=== PATIENT | female | born 1940 | race Caucasian/White ===

== ENCOUNTER 2020-09-20 17:12 | Inpatient (IN) ==
[2020-09-20] MEDS ORDERED: Naloxone 0.4 MG/ML INJ IVP PRN (21:54)
[2020-09-20] MEDS ORDERED: Ondansetron 4 MG/2 ML VIAL IVP PRN (21:54)
[2020-09-20] MEDS ORDERED: 0.9 % Sodium Chloride 1,000 ML IVC SCH (22:00)
[2020-09-21 00:07] LABS: Bilirubin,Urine Negative (Negative); Blood,Urine Negative (Negative); Clarity,Urine Clear (Clear); Color,Urine Colorless (Yellow); Glucose,Urine (UA) Normal (Normal); Ketones,Urine Negative (Negative); Leukocyte Esterase,Urine Negative (Negative); Nitrite,Urine Negative (Negative); PH,Urine 6.5 pH Units (5.0-8.0); Protein,Urine Trace mg/dL (Neg-Trace); Specific Gravity,Urine 1.023 (1.010-1.025); Urobilinogen,Urine Normal (Normal)
[2020-09-21] MEDS ORDERED: MetroNIDAZOLE 500 MG/100 ML 500 MG/100 ML BAG IVPB SCH (02:00)
[2020-09-21] MEDS: Ipratropium/Albuterol Neb 3 ML IH SCH ×6 (04:21→23:02)
[2020-09-21] MEDS: Acetaminophen 325 MG TABLET PO PRN ×2 (04:33→22:49)
[2020-09-21] MEDS ORDERED: *HR* Labetalol 20 MG/4 ML SYRINGE IVP PRN (04:53)
[2020-09-21] MEDS: *HR* Heparin 5,000 UNIT/ML VIAL SQ SCH ×3 (05:42→22:49)
[2020-09-21] MEDS: MethylPREDNISolone 40 MG/ML VIAL IVP SCH ×3 (05:43→22:49)
[2020-09-21 05:52] LABS: Basophils # 0.1 K/mcL (0.0-0.2); Basophils % 0.3 %; Eosinophils # 0.1 K/mcL (0.0-0.6); Eosinophils % 0.6 %; Hematocrit 36.5 % (35.3-44.9); Hemoglobin 12.6 g/dL (11.5-15.4); Immature Granulocytes % 0.7 % (0-4); Lymphocytes # 1.9 K/mcL (0.6-4.6); Lymphocytes % 11.6 %; Mean Corpuscular HGB Conc 34.5 g/dL (31.6-35.5); Mean Corpuscular Hemoglobin 29.5 pg (28.0-33.3); Mean Corpuscular Volume 85.5 fL (83.0-100.0); Mean Platelet Volume 9.8 fL (9.4-12.4); Monocytes # 1.4 K/mcL (0.0-1.3); Monocytes % 8.6 %; Platelet Count 357 K/mcL (140-400); Red Blood Count 4.27 M/mcL (3.82-4.97); Red Cell Distribution Width 13.2 % (11.5-14.5); Segmented Neutrophils % 78.2 %; White Blood Count 16.7 K/mcL (4.3-11.1)
[2020-09-21 05:55] LABS: INR 1.2; Prothrombin Time 13.5 Seconds (9.4-12.1)
[2020-09-21 05:58] LABS: Activated Partial Thrombo Time 28.6 Seconds (26.0-36.0)
[2020-09-21 06:09] LABS: Alanine Aminotransferase 17 Units/L (7-52); Albumin 2.6 g/dL (3.5-5.7); Alkaline Phosphatase 94 Units/L (34-104); Aspartate Amino Transferase 17 Units/L (13-39); BUN/Creatinine Ratio 27 (6-26); Bilirubin,Total 0.4 mg/dL (0.3-1.0); Blood Urea Nitrogen 25 mg/dL (8-23); Calcium 8.1 mg/dL (8.6-10.3); Carbon Dioxide 22 mEq/L (23-29); Chloride 111 mEq/L (98-107); Globulin 2.7 g/dL (2.4-3.5); Glucose 84 mg/dL (70-105); Osmolality,Calculated 294 (280-300); Potassium 3.8 mEq/L (3.5-5.1); Sodium 140 mEq/L (136-145); Total Protein 5.3 g/dL (6.4-8.9); eGFR For African Americans > 60 (> 60); eGFR For Non-African Americans 57 (> 60)
[2020-09-21] MEDS: amLODIPine 5 MG TABLET PO SCH ×2 (06:26→09:41)
[2020-09-21] MEDS ORDERED: cefTRIAXone 1,000 MG in 0.9 % Sodium Chloride Mini Bag 100 ML IVPB SCH (09:00)
[2020-09-21] MEDS ORDERED: E-Z-PAQUE (BARIUM SULF) SUSP 1 BOTTLE PO ONE (10:03)
[2020-09-21] MEDS ORDERED: E-Z-HD (BARIUM SULF) SUSPENSION PO ONE (10:03)
[2020-09-21] MEDS ORDERED: cefTRIAXone 1,000 MG in Water for inj. (sterile) 10 ML IVP ONE (11:10)
[2020-09-21 12:34] LABS: Adenovirus Not Detected (Not Detect); Bordetella Pertussis Not Detected (Not Detect); Chlamydophila pneumoniae Not Detected (Not Detect); Coronavirus 229E Not Detected (Not Detect); Coronavirus HKU1 Not Detected (Not Detect); Coronavirus NL63 Not Detected (Not Detect); Coronavirus OC43 Not Detected (Not Detect); Human Metapneumovirus Not Detected (Not Detect); Human Rhinovirus/Enterovirus Not Detected (Not Detect); Influenza A Subtype 2009 H1 Not Detected (Not Detect); Influenza B Not Detected (Not Detect); Mycoplasma pneumoniae Not Detected (Not Detect); Parainfluenza Virus 1 Not Detected (Not Detect); Parainfluenza Virus 2 Not Detected (Not Detect); Parainfluenza Virus 3 Not Detected (Not Detect); Parainfluenza Virus 4 Not Detected (Not Detect); Respiratory Syncytial Virus DETECTED (Not Detect); SARS-CoV-2 Not Detected (Not Detect)
[2020-09-21] MEDS: Azithromycin 500 MG in 0.9 % Sodium Chloride 250 ML IVPB SCH (13:03)
[2020-09-21] MEDS ORDERED: Isovue-370 500 ML BOTTLE IVP ONE (13:05)
[2020-09-21] MEDS ORDERED: Isovue-370 500 ML BOTTLE PO ONE (15:52)
[2020-09-22] MEDS: Ipratropium/Albuterol Neb 3 ML IH SCH ×6 (04:07→22:56)
[2020-09-22 04:51] LABS: Basophils % 0.1 %; Hemoglobin 13.3 g/dL (11.5-15.4); Immature Granulocytes % 0.9 % (0-4); Lymphocytes # 0.6 K/mcL (0.6-4.6); Lymphocytes % 3.7 %; Mean Corpuscular HGB Conc 33.3 g/dL (31.6-35.5); Mean Corpuscular Hemoglobin 28.6 pg (28.0-33.3); Mean Platelet Volume 10.2 fL (9.4-12.4); Monocytes # 0.3 K/mcL (0.0-1.3); Neutrophils # 14.2 K/mcL (1.6-8.9); Platelet Count 352 K/mcL (140-400); Red Blood Count 4.65 M/mcL (3.82-4.97); Red Cell Distribution Width 13.4 % (11.5-14.5); Segmented Neutrophils % 93.3 %; White Blood Count 15.2 K/mcL (4.3-11.1)
[2020-09-22] MEDS: *HR* Heparin 5,000 UNIT/ML VIAL SQ SCH ×3 (05:54→22:16)
[2020-09-22] MEDS: MethylPREDNISolone 40 MG/ML VIAL IVP SCH ×2 (05:54→14:57)
[2020-09-22 05:55] LABS: Calcium 8.6 mg/dL (8.6-10.3); Thyroid Stimulating Hormone 0.219 mcIU/mL (0.340-5.600)
[2020-09-22 06:25] LABS: Hepatitis C Virus Antibody Nonreactive (Nonreactive)
[2020-09-22 06:26] LABS: HIV-1&2 Antibody & p24 Ag Nonreactive (Nonreactive)
[2020-09-22] MEDS: amLODIPine 5 MG TABLET PO SCH (09:17)
[2020-09-22] MEDS: Azithromycin 500 MG in 0.9 % Sodium Chloride 250 ML IVPB SCH (09:18)
[2020-09-22 09:27] LABS: Triiodothyronine (T3) Total 0.57 ng/mL (0.87-1.78)
[2020-09-22] MEDS: cefTRIAXone 2,000 MG in 0.9 % Sodium Chloride Mini Bag 100 ML IVPB SCH (11:54)
[2020-09-23] MEDS: Ipratropium/Albuterol Neb 3 ML IH SCH ×3 (04:14→11:43)
[2020-09-23] MEDS: *HR* Heparin 5,000 UNIT/ML VIAL SQ SCH (05:29)
[2020-09-23 05:30] LABS: Hemoglobin 12.3 g/dL (11.5-15.4); Mean Corpuscular HGB Conc 34.2 g/dL (31.6-35.5); Mean Corpuscular Hemoglobin 29.4 pg (28.0-33.3); Mean Corpuscular Volume 85.9 fL (83.0-100.0); Mean Platelet Volume 9.9 fL (9.4-12.4); Platelet Count 370 K/mcL (140-400); Red Blood Count 4.19 M/mcL (3.82-4.97); Red Cell Distribution Width 13.5 % (11.5-14.5); White Blood Count 20.3 K/mcL (4.3-11.1)
[2020-09-23 06:16] LABS: Calcium 8.4 mg/dL (8.6-10.3); Magnesium 2.2 mg/dL (1.6-2.6); Phosphorous 3.5 mg/dL (2.7-4.5); Potassium 4.1 mEq/L (3.5-5.1)
[2020-09-23] MEDS: amLODIPine 5 MG TABLET PO SCH (08:52)
[2020-09-23] MEDS: Azithromycin 500 MG in 0.9 % Sodium Chloride 250 ML IVPB SCH (08:53)
[2020-09-23] MEDS: Calcium Gluconate 1gm/50mL 1 GM/50 ML BAG IVPB SCH ×2 (08:53→09:49)
[2020-09-23] MEDS ORDERED: MethylPREDNISolone 40 MG/ML VIAL IVP SCH (09:00)
[2020-09-23 10:44] VITALS: BP 161/64
[2020-09-23] MEDS: cefTRIAXone 2,000 MG in 0.9 % Sodium Chloride Mini Bag 100 ML IVPB SCH (11:46)
== END 2020-09-23 13:20 | disposition home or self-care (01) | DRG 720 ==
LOC: 2NENU → SUATTDRO 20:53
PROVIDERS: ADMIT Internal Medicine; ATTEND Internal Medicine

== ENCOUNTER 2021-08-29 14:56 | Observation (INO) ==
[2021-08-29] MEDS ORDERED: Naloxone 0.4 MG/ML INJ IVP PRN (16:46)
[2021-08-29] MEDS ORDERED: Furosemide 20 MG/2 ML VIAL IVP ONE (17:46)
[2021-08-29] MEDS ORDERED: Perflutren Lipid Microsphere 1.3 ML in 0.9 % Sodium Chloride 8.7 ML IVP PRN (17:50)
[2021-08-29] MEDS: predniSONE 20 MG TABLET PO SCH (18:12)
[2021-08-29] MEDS: Azithromycin 500 MG in 0.9 % Sodium Chloride 250 ML IVPB SCH (18:12)
[2021-08-29] MEDS: Ipratropium/Albuterol Neb 3 ML IH SCH (20:43)
[2021-08-29] MEDS: Budesonide/Formoterol 160/4.5 1 PUFF INH IH SCH (20:45)
[2021-08-29] MEDS: *HR* Heparin 5,000 UNIT/ML VIAL SQ SCH (20:51)
[2021-08-30 01:37] LABS: Basophils % 0.1 %; Hematocrit 31.4 % (35.3-44.9); Hemoglobin 10.3 g/dL (11.5-15.4); Immature Granulocytes % 0.5 % (0-4); Lymphocytes # 0.3 K/mcL (0.6-4.6); Lymphocytes % 3.6 %; Mean Corpuscular HGB Conc 32.8 g/dL (31.6-35.5); Mean Corpuscular Volume 85.3 fL (83.0-100.0); Mean Platelet Volume 10.5 fL (9.4-12.4); Monocytes # 0.1 K/mcL (0.0-1.3); Monocytes % 0.8 %; Neutrophils # 7.9 K/mcL (1.6-8.9); Platelet Count 265 K/mcL (140-400); Red Blood Count 3.68 M/mcL (3.82-4.97); Red Cell Distribution Width 14.6 % (11.5-14.5); White Blood Count 8.4 K/mcL (4.3-11.1)
[2021-08-30 01:57] LABS: Magnesium 2.1 mg/dL (1.6-2.6); Phosphorous 3.9 mg/dL (2.7-4.5); Potassium 4.3 mEq/L (3.5-5.1)
[2021-08-30] MEDS: Ipratropium/Albuterol Neb 3 ML IH SCH ×4 (04:00→20:53)
[2021-08-30] MEDS: *HR* Heparin 5,000 UNIT/ML VIAL SQ SCH ×3 (05:22→20:40)
[2021-08-30] MEDS: Budesonide/Formoterol 160/4.5 1 PUFF INH IH SCH ×2 (10:25→20:54)
[2021-08-30] MEDS ORDERED: Loratadine 10 MG TABLET PO PRN (11:37)
[2021-08-30] MEDS: amLODIPine 5 MG TABLET PO SCH (12:10)
[2021-08-30] MEDS ORDERED: Furosemide 20 MG/2 ML VIAL IVP ONE (12:12)
[2021-08-30] MEDS ORDERED: cefTRIAXone 1,000 MG in 0.9 % Sodium Chloride 10 ML IVP SCH (13:00)
[2021-08-30] MEDS: predniSONE 20 MG TABLET PO SCH (16:26)
[2021-08-30] MEDS: Azithromycin 500 MG in 0.9 % Sodium Chloride 250 ML IVPB SCH (16:26)
[2021-08-31 02:20] LABS: Hematocrit 30.2 % (35.3-44.9); Immature Granulocytes % 0.4 % (0-4); Lymphocytes # 0.4 K/mcL (0.6-4.6); Lymphocytes % 5.2 %; Mean Corpuscular HGB Conc 33.1 g/dL (31.6-35.5); Mean Corpuscular Hemoglobin 28.3 pg (28.0-33.3); Mean Corpuscular Volume 85.6 fL (83.0-100.0); Mean Platelet Volume 10.1 fL (9.4-12.4); Monocytes # 0.1 K/mcL (0.0-1.3); Monocytes % 1.2 %; Neutrophils # 7.1 K/mcL (1.6-8.9); Platelet Count 247 K/mcL (140-400); Red Blood Count 3.53 M/mcL (3.82-4.97); Red Cell Distribution Width 14.6 % (11.5-14.5); Segmented Neutrophils % 93.2 %; White Blood Count 7.6 K/mcL (4.3-11.1)
[2021-08-31 02:24] LABS: Calcium 8.1 mg/dL (8.6-10.3); Potassium 4.4 mEq/L (3.5-5.1)
[2021-08-31] MEDS: Ipratropium/Albuterol Neb 3 ML IH SCH ×2 (04:13→10:52)
[2021-08-31 04:17] VITALS: TEMP 97.8
[2021-08-31] MEDS: *HR* Heparin 5,000 UNIT/ML VIAL SQ SCH (06:07)
[2021-08-31] MEDS: amLODIPine 5 MG TABLET PO SCH (07:30)
[2021-08-31 07:31] VITALS: BP 142/65; PULSE 92
[2021-08-31 09:57] VITALS: O2SAT 98
[2021-08-31] MEDS: Budesonide/Formoterol 160/4.5 1 PUFF INH IH SCH (10:52)
== END 2021-08-31 12:30 | disposition home or self-care (01) ==
LOC: 2ANU
PROVIDERS: ADMIT Internal Medicine; ATTEND Internal Medicine